=== PATIENT | female | born 1945 | race Hispanic/Latino ===

== ENCOUNTER 2022-08-19 21:26 | Emergency (ER) | payer OTHER ==
--- OUTSIDE RECORDS SUMMARY | 2022-08-19 21:29 | XMS REPORT | Continuity of Care Document ---
:1945 Author Organization [facility] t Address [address] [place] [address] Care Team Providers Name Role Phone Julian Castaneda MD Primary Care Physician Lab, Adc Fam Pob I Attending Clinician Unavailable Delvin Mariano PA-C Attending Clinician DELVIN MARIANO Attending Clinician Unavailable Doctor Unassigned, [place] Attending Clinician Unavailable Jhonny Friedman Attending Clinician Payers Payer Name Policy Type Policy Number Effective Date Expiration Date S ource Problems Condition Condition Condition Status Onset Resolution Last Treating Co mments Source Name Details Category Date Date Treatment Clinician Date Spinal Spinal Disease Active Methodi stenosis stenosis 3-20 st of lumbar of lumbar 00:00: Hosp edie region region 00 l without without neurogenic neurogenic claudicati claudicati on on Hypertensi Hypertensi Disease Active M ethodi ve ve 9-25 st emergency emergency 00:00: Hosp deie 00 l 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 21:49:37 l thy thy Josias (disorder) (disorder) Active Problem 02/25/2020 [facility] Dizziness Dizziness Problem Active 2020-02-25 Memoria (finding) (finding) 21:49:37 l Active [place] Problem 02/25/2020 [facility] Headache Headache Problem Active 2020-02-25 Memoria (finding) (finding) 21:49:37 l Active Josias Problem 02/25/2020 [facility] Hypertensi Problem Active 2020-02-25 M emoria ve Hypertensi 21:49:37 l disorder, ve [place] systemic disorder, arterial systemic (disorder) arterial (disorder) Active Problem 02/25/2020 [facility] Hypothyroi Hypothyro Problem Active 2020-02-25 Memoria dism idism 21:49:37 l (disorder) (disorder) He rmann Active Problem 02/25/2020 [facility] Allergies, Adverse Reactions, Alerts Allergy Allergy Status Severity Reaction(s) Onset Inactive Treating Comm ents Source Name Type Date Date Clinician Gerber Brizuela Active 'I was Method i phone ty to [address] adverse 00:00: it' Hospita reaction 00 l s to drug Gluten Propensi Active GI Methodi ty to Intolerance 05-27 st adverse 00:00: Hospita reaction 00 l s to drug Codeine Propensi Active Other (See "numbness Methodi ty to Comments) [address] adverse 00:00: and Hospita reaction 00 mouth"at l s to age 28 drug codeine codeine Active Sebastian Ferrara NO KNOWN Drug Active Univers ALLERGIE Class [facility] Family History Family Member Diagnosis Comments Start Date Stop Date Source Natural father Alcohol abuse Methodi [facility] Natural mother Hypertension [facility] Natural sister Cancer [facility] Social History Social Habit Start Date Stop Date Quantity Comments Source Exposure to Yes [facility] SARS-CoV-2 [facility]event[facility] Alcohol intake 2018-12-14 2018-12-14 [facility] 00:00:00 00:00:00 non-drinker of alcohol (finding) Tobacco use and 2018 2018 Smokeless tobacco [facility] exposure 00:00:00 00:00:00 non-user Sex Ass[birth year] [facility] 00:00:00 00:00:00 Smoking Status Start Date Stop Date Source Social History [facility] Never smoked tobacco [facility] ospital Medications Ordered Filled Start Stop Current Ordering Indication Dosage Frequency Signature Comments Components Source Medication Medication Date Date Medication? Clinician (SIG) Name Name 24 HR Yes 37.5 mg = Memoria venlafaxine 3-04 1 cap, PO, l 37.5 MG 21:35: Daily, # Terence n Extended 00 30 cap, 2 Release Refill(s), Capsule Pharmacy: [Effexor] [id number] Losartan Yes 25 mg, PO, Mem oria 1-21 Daily, 0 l 18:01: Refill(s) [place] Bisoprolol Yes 10 mg, PO, M emoria 1-21 Daily, 0 l 18:01: Refill(s) Josias 00 L. 2019 Yes 1{tbl} Take 1 Methodi acidophilus 3-[address] /dig enz 12:23: mouth Hospita cmb 5 14 daily. l (PROBIOTIC- DIGESTIVE ENZYMES ORAL) cranberry Yes 1{capsu Take 1 Met hodi 400 mg 3-21 le} capsule by st capsule 12:23: mouth. Hospita 14 l ranitidine Yes 150mg QD Take 150 Me thodi HCl (ZANTAC 3-[address] 75 ORAL) 12:23: mouth Hospita 14 every l morning. losartan Yes 25mg QD Take 25 mg Met hodi (COZAAR) 25 3-[address] MG tablet 12:23: nightly. Hosp edie 14 l bisoprolol Yes 10mg QD Take 10 mg M ethodi (ZEBETA) 10 3-[address] MG tablet 12:23: nightly. Hosp edie 14 l therapeutic Yes 1{tbl} QD Take 1 Me thodi multivitami 3-[address] n 12:23: mouth Hospita (THERAGRAN) 14 daily. l tablet polyethylen Yes Take by Met hodi e glycol 3-[address] 3350 12:23: Hospita (MIRALAX 14 l ORAL) Vital Signs Vital Name Observation Time Observation Value Comments Source Systolic (mm Hg) 2019-11-09 20:46:00 Frank rial Josias Diastolic (mm Hg) 2019-11-09 20:46:00 [facility] orial Josias Heart Rate 2019-11-09 20:46:00 [facility] Respitory Rate 2019-11-09 20:46:00 [facility] Height 2019-11-09 20:46:00 152.4 cm [facility] Weight 2019-11-09 20:46:00 [facility] BMI Calculated 2019-11-09 20:46:00 [facility] Height 2019-09-27 17:58:00 180.34 cm [facility] Weight 2019-09-27 17:58:00 [facility] BMI Calculated 2019-09-27 17:58:00 James Santillan Procedures Procedure Date / Time Performed Performing Clinician Toni duron Cervical laminectomy [facility] Laminectomy [facility] Plan of Care Planned Activity Planned Date Details Comments Source Future Scheduled 2022-07-11 HEPATITIS B VACCINES Met [facility] Test 16:40:57 (1 of 3 - 3-dose series) [code = HEPATITIS B VACCINES (1 of 3 - 3-dose series)] Future Scheduled 2022-07-11 COVID-19 VACCINE (#1) [facility] Test 16:40:57 [code = COVID-19 VACCINE (#1)] Future Scheduled 2022-07-11 BREAST CANCER [facility] Test 16:40:57 SCREENING [code = BREAST CANCER SCREENING] Future Scheduled 2022-07-11 COLONOSCOPY SCREENING [facility] Test 16:40:57 [code = COLONOSCOPY SCREENING] Future Scheduled 2022-07-11 SHINGLES VACCINES (1 Met [facility] Test 16:40:57 of 2) [code = SHINGLES VACCINES (1 of 2)] Future Scheduled 2022-07-11 65+ PNEUMOCOCCAL Methodi [facility] Test 16:40:57 VACCINE (1 - PCV) [code = 65+ PNEUMOCOCCAL VACCINE (1 - PCV)] Future Scheduled 2022-07-11 INFLUENZA VACCINE Method [facility] Test 16:40:57 [code = INFLUENZA VACCINE] Encounters Start End Encounter Admission Attending Care Care Encounter Source Date/Time Date/Time Type Type Clinicians Facility Department ID 2020-10-18 2020-10-18 Laboratory Lab, Adc Fam Pob I [facility] [id number] Univers 15:07:53 15:27:53 Only Delvin Mariano [facility] [id number] emily [facility] [id number] Shahid as Professio [phone] [place] [address] [address] 2020-10-18 2020-10-18 Outpatient R BUBBA MARIANO [facility] [id number] Univers 15:00:00 15:00:00 DELVIN diaz [facility] 2020-10-18 2020-10-18 Letter Doctor DELVIN [id number] 00:00:00 00:00:00 (Out) Unassigned, MARA [id number] ity of [place] [facility] [id number] Shahid as [phone] [address] 2020-02-23 2020-02-23 Ambulatory nullFlavo MNA [id number] Memoria 18:45:00 18:45:00 Pre-Reg r Neurology 02 l Violetta Ferrara 2020-02-23 2020-02-23 Outpatient Elder MHMISCHER MHMISCHER [id number] 13:45:00 13:45:00 Jhonny 02 Eleuterio 2019-12-21 2019-12-21 Outpatient MHIE MHIE [id number] Memoria 15:45:00 15:45:00 02 river Ferrara 2019-11-09 2019-11-10 Outpatient nullFlavo MNA [id number] Memoria 20:30:00 05:59:59 r Neurology 01 l Violetta Ferrara 2019-11-09 2019-11-09 Outpatient KLAUS FriemdanMISCHER MHMISCHER [id number] 14:30:00 23:59:59 Jhonny Eleuterio 2019-11-09 2019-11-09 Outpatient MHIE MHIE [id number] Memoria 14:30:00 14:30:00 01 river Ferrara 2019-10-07 2019-10-09 Outside nullFlavo MNA [id number] Memoria 20:55:28 05:59:59 Medical r Neurology 00 l Records Violetta Ferrara 2019-10-07 2019-10-08 Outpatient MHMISCHER MHMISCHER [id number] 14:55:28 23:59:59 00 2019-09-27 2019-09-28 Outpatient nullFlavo MNA [id number] Memoria 17:30:00 05:59:59 r Neurology 00 l Violetta Ferrara 2019-09-27 2019-09-27 Outpatient CODIE FriedmanSCHER MHMISCHER [id number] 11:30:00 23:59:59 Jhonny 00 Eleuterio 2019-09-27 2019-09-27 Outpatient MHIE MHIE [id number] Memoria 11:30:00 11:30:00 00 river Ferrara Results This patient has no known results.
[2022-08-19] MEDS ORDERED: MORPHINE 2 MG/ML SYR ONE (22:44)
[2022-08-19 23:00] LABS: Absolute Lymphocytes (CBC) 1.5 K/uL (0.7-4.9); Hematocrit 30.9 % (36.0-45.0); Lymphocytes % 17.8 % (15.3-44.8); MCV 94.5 fL (80-100); MPV 7.8 fL (7.6-11.3); RBC Red Blood Cell Count 3.27 M/uL (3.86-4.86)
[2022-08-19 23:15] LABS: Potassium 4.1 mmol/L (3.5-5.1)
[2022-08-20] MEDS ORDERED: ACETAMINOPHEN 325 MG TABLET ONE (00:14)
[2022-08-20 01:31] LABS: SARS-CoV-2 Antigen Rapid Res Negative (Negative)
--- NOTE | 2022-08-20 02:09 | ER ---
Nurse's Notes [facility] Name: Maribell New Age: 77 yrs Sex: Female : 1945 Arrival Date: 08/19/2022 Time: 21:29 Bed 5 Private MD: Diagnosis: Fracture of sixth cervical vertebra;Fall (on) (from) other stairs and steps, initial encounter Presentation: 08/19 22:12 Chief complaint: Patient states: "I fell down 3 steps. I don't think I loss vc1 consciousness.". Coronavirus screen: Vaccine status: Patient reports receiving the 2nd dose of the covid vaccine. Moderna At this time, the client does not indicate any symptoms associated with coronavirus-19. Ebola Screen: No symptoms or risks identified at this time. Risk Assessment: Do you want to hurt yourself or someone else? Patient reports no desire to harm self or others. Onset of symptoms was August 19, 2022 at 20:30. 22:12 Method Of Arrival: Ambulatory vc1 22:12 Acuity: TINY 2 vc1 22:12 Care prior to arrival: None. Mechanism of Injury: Fall down 3 steps. Trauma event jb4 details: Injury occurred in the [facility]. 22:12 Initial Sepsis Screen: Does the patient meet any 2 criteria? No. Patient's initial jb4 sepsis screen is negative. Does the patient have a suspected source of infection? No. Patient's initial sepsis screen is negative. Triage Assessment: 22:15 General: Appears in no apparent distress. uncomfortable, Behavior is calm, cooperative, vc1 appropriate for age. Pain: Complains of pain in right side of the head, right side of neck, right shoulder. Pain does not radiate. Pain currently is 9 out of 10 on a pain scale. EENT: No deficits noted. Neuro: Level of Consciousness is awake, alert, obeys commands, Oriented to person, place, time, situation, Appropriate for age. Cardiovascular: No deficits noted. Respiratory: Airway is patent Respiratory effort is even, unlabored, Respiratory pattern is regular, symmetrical. Trauma Activation: Alert Physician: ED Physician; Name: ramiro; Notified At: 22:17; Arrived At: 22:17 Physician: General Surgeon; Name: ; Notified At: 22:17; Arrived At: Physician: Radiology; Name: ; Notified At: 22:17; Arrived At: Physician: Respiratory; Name: ; Notified At: 22:17; Arrived At: Physician: Lab; Name: ; Notified At: 22:17; Arrived At: Historical: - Allergies: 22:14 codeine-guaifenesin; vc1 - PMHx: 22:14 Hypertensive disorder; vc1 22:14 Celiac's; Arthritis; Nerve and muscle damage; vc1 - PSHx: 22:14 Carpal tunnel; Neck sx; vc1 - Immunization history:: Adult Immunizations up to date, Client reports receiving the 2nd dose of the Covid vaccine. - Social history:: Smoking status: Patient denies any tobacco usage or history of. - Immunization history: Last tetanus immunization: unknown. Screenin:26 Abuse screen: Denies threats or abuse. Nutritional screening: No deficits noted. jb4 Tuberculosis screening: No symptoms or risk factors identified. Fall risk At risk due to prior history of falls. 22:[address] [facility] ED Fall Risk Assessment (Adult) History of falling in the last 3 months, jb4 including since admission Yes- single mechanical fall (1 pt) Confusion or Disorientation No (0 pts) Intoxicated or Sedated No (0 pts) Impaired Gait No (0 pts) Mobility Assist Device Used No (0 pt) Altered Elimination No (0 pt) Score/Fall Risk Level 0 - 2 = Low Risk Oriented to surroundings, Maintained a safe environment, Educated pt \\T\\ family on fall prevention, incl call for assistance when getting out of bed, Assessed \\T\\ reinforced patient's understanding of fall precautions, Provided non-skid footwear, Hourly rounding (assess needs \\T\\ fall precautionary measures) done. Fall Risk Fall in past 12 months (25 points). IV access (20 points). Total Grace Fall Scale indicates High Risk Score (45 or more points). Fall prevention measures have been instituted. Side Rails Up X 2 Placed Close to Nursing Station Frequent Obs/Assessments Occuring Family Present and informed to notify staff if the need to leave the bedside As available patient and family educated on Fall Prevention Program and Strategies. Primary Survey: 22:26 NO uncontrolled hemorrhage observed. A: The client is awake and alert. The airway is jb4 patent. Breathing/Chest: Spontaneous respiratory effort, equal unlabored respirations, breath sounds clear bilaterally, regular pattern, symmetrical chest rise and fall. Circulation: No external hemorrhage present. Regular and strong central pulse, skin warm/dry/normal color. Disability Pupils are equal, round, reactive to light and accommodation. Client is alert. Exposure/Environment: All clothing and personal items were removed. Forensic evidence collection is not deemed to be indicated at this time. Items placed in patient belonging bag. A warming method has been applied: A warm blanket has been provided to the patient. 23:30 Reassessment Alertness and Airway: Awake and alert. The airway is patent. Breathing: jb4 Spontaneous respiratory effort, equal unlabored respirations, breath sounds clear bilaterally, regular pattern with symmetrical chest rise and fall. Circulation: No external hemorrhage noted. Regular and strong central pulse, skin warm/dry/normal color. Disability: Pupils Pupils are equal, round, reactive to light and accomodation. Alert. Secondary Survey: 22:26 HEENT: No deficits noted. Gastrointestinal: No deficits noted. : No deficits noted. jb4 No signs and/or symptoms were reported regarding the genitourinary system. Musculoskeletal: Circulation, motion, and sensation intact. Range of motion: intact in all extremities. Assessment: 22:30 General: Appears in no apparent distress. comfortable, Behavior is calm, cooperative, jb4 appropriate for age. Pain: Complains of pain in right side of head, kneck, and right shoulder Pain does not radiate. Pain currently is 4 out of 10 on a pain scale. Neuro: Level of Consciousness is awake, alert, obeys commands, Oriented to person, place, time, situation. Cardiovascular: Patient's skin is warm and dry. Respiratory: Airway is patent Respiratory effort is even, unlabored, Respiratory pattern is regular, symmetrical. GI: No signs and/or symptoms were reported involving the gastrointestinal system. : No signs and/or symptoms were reported regarding the genitourinary system. EENT: No signs and/or symptoms were reported regarding the EENT system. Derm: Skin is intact, Skin is pink, warm \\T\\ dry. Musculoskeletal: Circulation, motion, and sensation intact. Range of motion: intact in all extremities. 23:22 Reassessment: Patient appears in no apparent distress at this time. Patient and/or jb4 family updated on plan of care and expected duration. Pain level reassessed. Patient is alert, oriented x 3, equal unlabored respirations, skin warm/dry/pink. 08/20 00:17 Reassessment: Patient appears in no apparent distress at this time. Patient and/or jb4 family updated on plan of care and expected duration. Pain level reassessed. Patient is alert, oriented x 3, equal unlabored respirations, skin warm/dry/pink. Neuro: Denies weakness dizziness, numbness. 01:00 Reassessment: Patient appears in no apparent distress at this time. Patient and/or jb4 family updated on plan of care and expected duration. Pain level reassessed. Patient is alert, oriented x 3, equal unlabored respirations, skin warm/dry/pink. 02:00 Reassessment: Patient appears in no apparent distress at this time. Patient and/or jb4 family updated on plan of care and expected duration. Pain level reassessed. Patient is alert, oriented x 3, equal unlabored respirations, skin warm/dry/pink. 02:00 Neuro: Level of Consciousness is awake, alert, obeys commands, Oriented to person, jb4 place, time, situation, Supervisor Inspecting are equal bilaterally Moves all extremities. Full function Gait is steady, Speech is normal, Denies weakness dizziness, numbness. Vital Signs: 08/19 22:12 Weight 52.16 kg; Height 5 ft. 0 in. (152.40 cm); Pain 9/10; vc1 22:27 BP 194 / 93; Pulse 66; Resp 17; Temp 97.3(TE); Pulse Ox 100% on R/A; ll3 08/20 00:00 BP 191 / 98; Pulse 71; Resp 16; Pulse Ox 100% on R/A; jb4 01:00 BP 158 / 112; Pulse 59; Resp 16; Pulse Ox 100% on R/A; jb4 02:00 BP 175 / 69; Pulse 79; Resp 16; Pulse Ox 100% on R/A; jb4 02:30 BP 155 / 55; Pulse 64; Resp 16; Pulse Ox 100% ; vc1 08/19 22:12 Body Mass Index 22.46 (52.16 kg, 152.40 cm) vc1 Sterling Coma Score: 08/19 22:26 Eye Response: spontaneous(4). Verbal Response: oriented(5). Motor Response: obeys jb4 commands(6). Total: 15. 23:22 Eye Response: spontaneous(4). Verbal Response: oriented(5). Motor Response: obeys jb4 commands(6). Total: 15. 08/20 00:00 Eye Response: spontaneous(4). Verbal Response: oriented(5). Motor Response: obeys jb4 commands(6). Total: 15. 01:00 Eye Response: spontaneous(4). Verbal Response: oriented(5). Motor Response: obeys jb4 commands(6). Total: 15. 02:00 Eye Response: spontaneous(4). Verbal Response: oriented(5). Motor Response: obeys jb4 commands(6). Total: 15. Trauma Score (Adult): 08/19 22:26 Eye Response: spontaneous(1); Verbal Response: oriented(1); Motor Response: obeys jb4 commands(2); Systolic BP: > 89 mm Hg(4); Respiratory Rate: 10 to 29 per min(4); Miguel Score: 15; Trauma Score: 12 23:22 Eye Response: spontaneous(1); Verbal Response: oriented(1); Motor Response: obeys jb4 commands(2); Systolic BP: > 89 mm Hg(4); Respiratory Rate: 10 to 29 per min(4); Miguel Score: 15; Trauma Score: 12 1214 00:00 Eye Response: spontaneous(1); Verbal Response: oriented(1); Motor Response: obeys jb4 commands(2); Systolic BP: > 89 mm Hg(4); Respiratory Rate: 10 to 29 per min(4); Miguel Score: 15; Trauma Score: 12 01:00 Eye Response: spontaneous(1); Verbal Response: oriented(1); Motor Response: obeys jb4 commands(2); Systolic BP: > 89 mm Hg(4); Respiratory Rate: 10 to 29 per min(4); Sterling Score: 15; Trauma Score: 12 02:00 Eye Response: spontaneous(1); Verbal Response: oriented(1); Motor Response: obeys jb4 commands(2); Systolic BP: > 89 mm Hg(4); Respiratory Rate: 10 to 29 per min(4); Sterling Score: 15; Trauma Score: 12 ED Course: 08/19 21:29 Patient arrived in ED. bp1 21:37 Adonay Lenz PA is PHCP. cp 21:37 Vince Garcia MD is Attending Physician. cp 22:13 Triage completed. vc1 22:17 Arm band placed on right wrist. vc1 22:26 Patient has correct armband on for positive identification. Placed in gown. Bed in low jb4 position. Call light in reach. Side rails up X 1. Patient maintains SpO2 saturation greater than 95% on room air. Client placed on continuous cardiac and pulse oximetry monitoring. NIBP monitoring applied. 22:26 Patient maintains SpO2 saturation greater than 95% on room air. Thermoregulation: warm jb4 blanket given to patient. 22:27 C-collar applied. ll3 22:50 Initial lab(s) drawn, by me, sent to lab. Inserted saline lock: 22 gauge in right ll3 antecubital area, using aseptic technique. Blood collected. 23:05 CT Traumagram (Head C Spine CAP W Con) In Process Unspecified. EDMS 23:20 Suhail Jernigan, RN is Primary Nurse. jb4 08/20 03:28 No provider procedures requiring assistance completed. Patient transferred, IV remains jb4 in place. Administered Medications: 08/19 22:50 Not Given (Patient Refused): morphine 2 mg IVP once over 4 mins ll3 08/20 00:18 Drug: Tylenol 650 mg Route: PO; jb4 02:07 CANCELLED (Physician Discretion): cloNIDine 0.1 mg PO once cp 02:36 Drug: Ativan (LORazepam) 0.5 mg Route: IVP; Site: right antecubital; jb4 Medication: 03:30 VIS not applicable for this client. vc1 Outcome: 02:09 ER care complete, transfer ordered by . cp 03:28 Transferred by ground EMS to [facility], Transfer form completed. X-rays sent jb4 w/ patient. 03:28 Condition: stable 03:28 Discharge instructions given to patient, Instructed on the need for transfer, Demonstrated understanding of instructions. 03:29 Patient's length of stay in the Emergency Department was greater than 2 hours. Pending jb4 transferPatient's length of stay extended due to 03:32 Patient left the ED. jb4 Signatures: Dispatcher [employer] EDMS Page, Adonay, PA PA cp Lapwai, Suhail, RN RN jb4 Ana Maria Chiu Lynsea, RN RN ll3 Anum Ontiveros RN RN vc1
--- NOTE | 2022-08-20 02:10 | EDPHYS ---
Physician Documentation [facility] Name: Maribell New Age: 77 yrs Sex: Female : 1945 Arrival Date: 08/19/2022 Time: 21:29 Bed 5 Private MD: ED Physician Vince Garcia HPI: 08/19 22:25 This 77 yrs old Female presents to ER via Ambulatory with complaints of Fall cp Injury. 22:25 Details of fall: The patient fell from a height, down approximately 3 stairs, and cp struck a concrete surface. Onset: The symptoms/episode began/occurred just prior to arrival. Associated injuries: The patient sustained neck injury, pain. Patient reports losing her balance while descending stairs and fall 3 stairs to ground level. Does not believe she lost consciousness from fall. Historical: - Allergies: 22:14 codeine-guaifenesin; vc1 - PMHx: 22:14 Hypertensive disorder; vc1 22:14 Celiac's; Arthritis; Nerve and muscle damage; vc1 - PSHx: 22:14 Carpal tunnel; Neck sx; vc1 - Immunization history:: Adult Immunizations up to date, Client reports receiving the 2nd dose of the Covid vaccine. - Social history:: Smoking status: Patient denies any tobacco usage or history of. - Immunization history: Last tetanus immunization: unknown. ROS: 22:30 Constitutional: Negative for body aches, chills, poor PO intake. cp 22:30 Eyes: Negative for injury, pain, redness, and discharge. cp 22:30 Neck: Positive for pain with movement, pain at rest. 22:30 Cardiovascular: Negative for chest pain, edema, palpitations. 22:30 Respiratory: Negative for cough, shortness of breath, wheezing. 22:30 Abdomen/GI: Negative for abdominal pain, nausea, vomiting, and diarrhea. 22:30 Back: Negative for pain at rest, pain with movement. 22:30 MS/extremity: Negative for deformity, paresthesias. 22:30 Neuro: Negative for altered mental status, numbness, syncope, weakness. 22:30 All other systems are negative. Exam: 22:35 Constitutional: The patient appears in no acute distress, alert, awake, cp non-diaphoretic, non-toxic, well developed, well nourished. 22:35 Head/Face: Normocephalic, atraumatic. cp 22:35 Eyes: Periorbital structures: appear normal, Conjunctiva: normal, no exudate, no injection, Sclera: no appreciated abnormality, Lids and lashes: appear normal, bilaterally. 22:35 ENT: External ear(s): are unremarkable, Ear canal(s): are normal, clear, TM's: dullness, bilaterally, Nose: is normal, Mouth: Lips: moist, Oral mucosa: pink and intact, moist, Posterior pharynx: Airway: no evidence of obstruction, patent, swelling, is not appreciated, erythema, is not appreciated. 22:35 Neck: C-spine: C-collar placed in ED, vertebral tenderness, that is mild, appreciated at C6 and C7. 22:35 Chest/axilla: Inspection: normal, Palpation: is normal, no crepitus, no tenderness. 22:35 Cardiovascular: Rate: normal, Rhythm: regular, Pulses: Pulses are 2+ in right radial artery and left radial artery. 22:35 Respiratory: the patient does not display signs of respiratory distress, Respirations: normal, no use of accessory muscles, no retractions, labored breathing, is not present, Breath sounds: are clear throughout, no decreased breath sounds, no stridor, no wheezing. 22:35 Abdomen/GI: Inspection: abdomen appears normal, Bowel sounds: active, all quadrants, Palpation: abdomen is soft and non-tender, in all quadrants. 22:35 Back: pain, that is mild, of the thoracic area. 22:35 Musculoskeletal/extremity: Exam is negative for decreased range of motion, deformity, injury. 22:35 Neuro: Orientation: to person, place \T\ time. Mentation: is normal, Motor: moves all fours, strength is normal, Sensation: no obvious gross deficits. Vital Signs: 22:12 Weight 52.16 kg; Height 5 ft. 0 in. (152.40 cm); Pain 9/10; vc1 22:27 BP 194 / 93; Pulse 66; Resp 17; Temp 97.3(TE); Pulse Ox 100% on R/A; ll3 1214 00:00 BP 191 / 98; Pulse 71; Resp 16; Pulse Ox 100% on R/A; jb4 01:00 BP 158 / 112; Pulse 59; Resp 16; Pulse Ox 100% on R/A; jb4 02:00 BP 175 / 69; Pulse 79; Resp 16; Pulse Ox 100% on R/A; jb4 02:30 BP 155 / 55; Pulse 64; Resp 16; Pulse Ox 100% ; vc1 08/19 22:12 Body Mass Index 22.46 (52.16 kg, 152.40 cm) vc1 Miguel Coma Score: 08/19 22:26 Eye Response: spontaneous(4). Verbal Response: oriented(5). Motor Response: obeys jb4 commands(6). Total: 15. 23:22 Eye Response: spontaneous(4). Verbal Response: oriented(5). Motor Response: obeys jb4 commands(6). Total: 15. 14 00:00 Eye Response: spontaneous(4). Verbal Response: oriented(5). Motor Response: obeys jb4 commands(6). Total: 15. 01:00 Eye Response: spontaneous(4). Verbal Response: oriented(5). Motor Response: obeys jb4 commands(6). Total: 15. 02:00 Eye Response: spontaneous(4). Verbal Response: oriented(5). Motor Response: obeys jb4 commands(6). Total: 15. Trauma Score (Adult): 08/19 22:26 Eye Response: spontaneous(1); Verbal Response: oriented(1); Motor Response: obeys jb4 commands(2); Systolic BP: > 89 mm Hg(4); Respiratory Rate: 10 to 29 per min(4); Miguel Score: 15; Trauma Score: 12 23:22 Eye Response: spontaneous(1); Verbal Response: oriented(1); Motor Response: obeys jb4 commands(2); Systolic BP: > 89 mm Hg(4); Respiratory Rate: 10 to 29 per min(4); Dale Score: 15; Trauma Score: 12 08/20 00:00 Eye Response: spontaneous(1); Verbal Response: oriented(1); Motor Response: obeys jb4 commands(2); Systolic BP: > 89 mm Hg(4); Respiratory Rate: 10 to 29 per min(4); Dale Score: 15; Trauma Score: 12 01:00 Eye Response: spontaneous(1); Verbal Response: oriented(1); Motor Response: obeys jb4 commands(2); Systolic BP: > 89 mm Hg(4); Respiratory Rate: 10 to 29 per min(4); Miguel Score: 15; Trauma Score: 12 02:00 Eye Response: spontaneous(1); Verbal Response: oriented(1); Motor Response: obeys jb4 commands(2); Systolic BP: > 89 mm Hg(4); Respiratory Rate: 10 to 29 per min(4); Dale Score: 15; Trauma Score: 12 MDM: 08/19 22:19 Patient medically screened. 08/20 01:10 Data reviewed: vital signs, nurses notes, lab test result(s), radiologic studies, CT scan, I have discussed the patient's presentation/case with the attending Emergency Department Physician; and as a result, I will transfer patient for trauma related C6 fracture. 01:10 Counseling: I had a detailed discussion with the patient and/or guardian regarding: the historical points, exam findings, and any diagnostic results supporting the discharge/admit diagnosis, radiology results, the need to transfer to another facility, for higher level of care. 02:10 Physician consultation: was contacted at 02:05, regarding regarding transfer, to [facility]. accepting physician will be DR Giordano. 08/19 22:32 Order name: Basic Metabolic Panel; Complete Time: 01:04 08/20 01:04 Interpretation: Normal except: NA 133; GLUC 107; BUN 25; CRE 1.06; GFR 55. 08/19 22:32 Order name: CBC with Diff; Complete Time: 01:04 08/19 22:32 Order name: Type And Screen; Complete Time: 01:04 08/19 22:32 Order name: CT Traumagram (Head C Spine CAP W Con) 08/20 00:13 Order name: SARS RAPID ds4 08/20 01:23 Order name: CREATININE WHOLE BLOOD EDMS 08/19 22:32 Order name: Labs collected and sent; Complete Time: 22:50 Administered Medications: 08/19 22:50 Not Given (Patient Refused): morphine 2 mg IVP once over 4 mins ll3 08/20 00:18 Drug: Tylenol 650 mg Route: PO; jb4 02:07 CANCELLED (Physician Discretion): cloNIDine 0.1 mg PO once 02:36 Drug: Ativan (LORazepam) 0.5 mg Route: IVP; Site: right antecubital; jb4 Disposition Summary: 08/20/22 02:09 Transfer Ordered Transfer Location: [facility] cp Reason: Higher level of care cp Condition: Stable cp Problem: new cp Symptoms: have improved cp Accepting Physician: DR Giordano(08/20/22 03:32) jb4 Diagnosis - Fracture of sixth cervical vertebra cp - Fall (on) (from) other stairs and steps, initial encounter cp Forms: - Medication Reconciliation Form cp - SBAR form cp Addendum: 08/23/2022 07:21 Co-signature as Attending Physician, Vince Garcia MD. r n Signatures: Dispatcher [employer] EDMS Vince Garcia MD MD rn Page, Corey, PA PA cp Bryson, James RN RN jb4 Anum Ontiveros RN RN vc1 Becka England RN ll3 Corrections: (The following items were deleted from the chart) 08/20 02:07 01:56 cloNIDine 0.1 mg PO once ordered. cp cp 02:09 02:09 DR Giordano cp cp 03:32 02:09 DR Giordano cp jb4
[2022-08-20] MEDS ORDERED: LORazepam 2 MG/ML VIAL ONE (02:34)
[2022-08-20 03:46] VITALS: TEMP 97.3; O2SAT 100
[2022-08-20 04:00] VITALS: BP 155/55
--- NOTE | 2022-08-20 10:59 | RAD REPORT ---
EXAM DESCRIPTION: CT Head and Cervical Spine Without Intravenous Contrast CLINICAL HISTORY: Fall down stairs TECHNIQUE: Axial computed tomography images of the head/brain and cervical spine without intravenous contrast. Sagittal and coronal reformatted images were created and reviewed. This CT exam was pe rformed using one or more of the following dose reduction techniques: automated exposure control, a djustment of the mA and/or kV according to patient size, and/or use of iterative reconstruction techn ique. COMPARISON: No relevant prior studies available. FINDINGS: Brain: Minimal bilateral periventricular and subcortical white matter low-attenuation wh ich is nonspecific and can be seen in the setting of chronic microvascular angiopathy. Numerous dur al calcifications. No hemorrhage. Ventricles: Unremarkable. No ventriculomegaly. Skull: No acute fracture. Sinuses: Unremarkable as visualized. No acute sinusitis. Mastoid air cells: Unremarkable as visualized. No mastoid effusion. Vertebrae: There is a vertically oriented linear lucency at the anterior inferior aspect of C6 in t he region of the disc osteophyte complex. Discs/spinal canal/neural foramina: Moderate to severe multilevel degenerative changes. Prior pos terior decompression extending from C3 through C6. No spinal canal stenosis. Soft tissues: Unremarkable. Vasculature: There is atherosclerotic disease of the internal carotid arteries bilaterally. * A single impression for all exams can be found at the end of this report EXAM DESCRIPTION: CT Chest, Abdomen and Pelvis With Intravenous Contrast CLINICAL HISTORY: Fall down stairs TECHNIQUE: Axial computed tomography images of the chest, abdomen and pelvis with intravenous contra st. Sagittal and coronal reformatted images were created and reviewed. This CT exam was performed using one or more of the following dose reduction techniques: automated exposure control, adjustme nt of the mA and/or kV according to patient size, and/or use of iterative reconstruction technique. COMPARISON: No relevant prior studies available. FINDINGS: CHEST: Lungs: Minimal bibasilar subsegmental atelectasis/pleural parenchymal scar. Pleural space: Calcified pleural plaques on the left. No significant effusion. No pneumothorax. Heart: The heart is mildly enlarged. Coronary artery calcification. No significant pericardial effusion. ABDOMEN: Liver: Unremarkable. No mass. Gallbladder and bile ducts: The gallbladder is contracted. No calcified stones. No ductal dilat ion. Pancreas: Unremarkable. No ductal dilation. No mass. Spleen: Unremarkable. No splenomegaly. Adrenals: Unremarkable. No mass. Kidneys and ureters: Unremarkable. No hydronephrosis. No solid mass. Stomach and bowel: Moderate stool. No obstruction. No appreciable mucosal thickening. PELVIS: Appendix: Normal caliber appendix. No findings to suggest acute appendicitis. Bladder: Unremarkable. No mass. Reproductive: Unremarkable as visualized. CHEST, ABDOMEN and PELVIS: Intraperitoneal space: Unremarkable. No significant fluid collection. No free air. Bones/joints: Multilevel spondylosis. No acute fracture. Prior posterior decompression at L4-L5 . No dislocation. Soft tissues: Unremarkable. Vasculature: Mild to moderate atherosclerotic disease. No aortic aneurysm. Lymph nodes: Unremarkable. No enlarged lymph nodes. * A single impression for all exams can be found at the end of this report IMPRESSION: CT Head and Cervical Spine Without Intravenous Contrast: 1. No acute intracranial or extra-axial abnormality. 2. Questionable age indeterminate fracture at the anterior inferior aspect of C6. 3. Other findings as above. CT Chest, Abdomen and Pelvis With Intravenous Contrast: 1. No acute intrathoracic injury. 2. No evidence for hollow or solid organ injury. 3. Other findings as above. THIS REPORT CONTAINS FINDINGS THAT MAY BE CRITICAL TO PATIENT CARE: The findings were verbally discu ssed via telephone conference with MOLLY Ashley, on 08/19/2022 11:53 PM [employer]ACH[employer]ED[employer]. The results were ackno wledged and understood. Electronically signed by: Gabe Freeman MD 08/19/2022 11:53 PM [employer]AT[employer]ING MACHINE FEEDER Due to temporary technical issues with the PACS/Fluency reporting system, reports are being signed by the in house radiologists without review as a courtesy to insure prompt reporting. The interpreting radiologist is fully responsible for the content of the report.
== END 2022-08-20 03:32 | disposition short-term general hospital (02) ==
LOC: ER 21:26
DX: S12.500A Unspecified displaced fracture of sixth cervical vertebra, initial encounter for closed fracture (principal); W10.8XXA Fall (on) (from) other stairs and steps, initial encounter; Z20.822 Contact with and (suspected) exposure to COVID-19; I10 Essential (primary) hypertension; Z88.5 Allergy status to narcotic agent
CPT/HCPCS: 85025; 80048; 36415; 86900; 86850; 82565; 86901; 70450; 72125; 71260; 74177; 96374; 99285; 87811; Q9967; J2270

== ENCOUNTER 2024-12-31 17:37 | Emergency (ER) | payer OTHER ==
--- NOTE | 2024-12-31 19:36 | RAD REPORT ---
EXAMINATION: Femur Right VIEWS: As above CLINICAL INDICATION: Female, 79 years old. PAIN RIGHT COMPARISON: No prior exam. IMPRESSION: No acute fracture. No dislocation. Mild to moderate right acetabular degenerative changes.
--- NOTE | 2024-12-31 19:38 | RAD REPORT ---
EXAM: Knee Left 3 View INDICATION: PAIN COMPARISON: None FINDINGS: No acute fracture. No significant knee effusion. Chondrocalcinosis in the medial and lateral lateral compartments. Mild medial lateral compartment maura rowing. Mild patellofemoral compartment spurring. Other: N/A IMPRESSION: No acute osseous abnormality involving the imaged knee.
--- NOTE | 2024-12-31 19:38 | RAD REPORT ---
EXAMINATION: Knee Right 3 View VIEWS: As above CLINICAL INDICATION: Female, 79 years old. PAIN COMPARISON: none IMPRESSION: Nondisplaced fracture at the middle third of the patella. Lipohemarthrosis present. No other fractures seen. Contour calcinosis the medial lateral compartment. Peripheral vascular calci fications..
--- NOTE | 2024-12-31 19:42 | ER ---
Nurse's Notes [facility] Name: Maribell New Age: 79 yrs Sex: Female : 1945 Arrival Date: 12/31/2024 Time: 17:37 Bed 15 Private MD: Diagnosis: Fracture of patella Presentation: 12/31 17:56 Chief complaint: EMS states: Pt tripped over some loose shingles on the ground, landed ph on both knees, c/o bilateral knee pain, worse on the R, did not hit head, no LOC, does not take blood thinners. Coronavirus screen: Vaccine status: Patient reports being unvaccinated. Ebola Screen: No symptoms or risks identified at this time. Initial Sepsis Screen: Does the patient meet any 2 criteria? No. Patient's initial sepsis screen is negative. Does the patient have a suspected source of infection? No. Patient's initial sepsis screen is negative. Risk Assessment: Do you want to hurt yourself or someone else? Patient reports no desire to harm self or others. Onset of symptoms was December 31, 2024. 17:56 Method Of Arrival: EMS: [facility] 17:56 Acuity: TINY 4 ph Triage Assessment: 17:58 General: Appears in no apparent distress. comfortable, well groomed, Behavior is calm, ph cooperative, appropriate for age. Pain: Complains of pain in bilateral knees, worse on R. Neuro: Level of Consciousness is awake, alert, obeys commands, Oriented to person, place, time, situation. Cardiovascular: Capillary refill < 3 seconds in bilateral fingers Patient's skin is warm and dry. Respiratory: Airway is patent Respiratory effort is even, unlabored. Derm: Skin is pink, warm \T\ dry. Musculoskeletal: Circulation, motion, and sensation intact. Range of motion: intact in all extremities, Swelling present in right knee. Historical: - Allergies: 17:58 codeine-guaifenesin; ph - PMHx: 17:58 Arthritis; Celiac's; Hypertensive disorder; Nerve and muscle damage; ph - PSHx: 17:58 carpal tunnel; Neck sx; ph - Immunization history:: Adult Immunizations unknown. - Infectious Disease History:: Denies. - Social history:: Smoking status: Patient denies any tobacco usage or history of. - Family history:: not pertinent. - Hospitalizations: : No recent hospitalization is reported. Screenin:00 [facility] ED Fall Risk Assessment (Adult) History of falling in the last 3 months, ph including since admission Yes- single mechanical fall (1 pt) Confusion or Disorientation No (0 pts) Intoxicated or Sedated No (0 pts) Impaired Gait No (0 pts) Mobility Assist Device Used No (0 pt) Altered Elimination No (0 pt) Score/Fall Risk Level 0 - 2 = Low Risk Oriented to surroundings, Maintained a safe environment, Hourly rounding (assess needs \T\ fall precautionary measures) done. Abuse screen: Denies threats or abuse. Denies injuries from another. Nutritional screening: No deficits noted. Tuberculosis screening: No symptoms or risk factors identified. Assessment: 18:01 General: SEE TRIAGE ASSESSMENT. ph Vital Signs: 17:56 BP 154 / 73; Pulse 81; Resp 18; Temp 97.9; Pulse Ox 98% on R/A; Weight 51.71 kg; Height ph 5 ft. 0 in. ; 20:15 BP 139 / 60; Pulse 86; Resp 18; Pulse Ox 97% ; cp4 17:56 Body Mass Index 22.26 (51.71 kg, 152.4 cm) ph ED Course: 17:47 Patient arrived in ED. eb 17:56 Lucy Saldaña, RN is Primary Nurse. ph 17:58 Vince Garcia MD is Attending Physician. rn 17:58 Triage completed. ph 18:00 Arm band placed on Patient placed in an exam room, on a stretcher, on pulse oximetry. ph 18:00 Patient has correct armband on for positive identification. Bed in low position. Call ph light in reach. Side rails up X 1. Pulse ox on. NIBP on. Door closed. Noise minimized. Warm blanket given. 19:31 XRAY Knee LEFT 3 view In Process Unspecified. EDMS 19:31 XRAY Knee RIGHT 3 view In Process Unspecified. EDMS 19:31 XRAY Femur RIGHT In Process Unspecified. EDMS 19:41 Rod Alberts MD is Referral Physician. rn 20:16 Provided Education on: patella fracture. cp4 20:16 No provider procedures requiring assistance completed. Knee immobilizer applied on cp4 right knee. 20:16 Patient did not have IV access during this emergency room visit. cp4 Administered Medications: No medications were administered Medication: 18:00 VIS not applicable for this client. ph Outcome: 19:41 Discharge ordered by . rn 20:16 Discharged to home via wheelchair, with crutches, cp4 20:16 Condition: stable 20:16 Discharge instructions given to patient, family, Instructed on discharge instructions, follow up and referral plans. medication usage, crutch walking, Demonstrated understanding of instructions, follow-up care, crutch walking, 20:17 Patient left the ED. cp4 Signatures: Dispatcher [employer] EDMS Vince Garcia MD MD rn Hall, Patricia, RN RN Yesesnia Parks Christina cp4
--- NOTE | 2024-12-31 19:42 | EDPHYS ---
Physician Documentation [facility] Name: Maribell New Age: 79 yrs Sex: Female : 1945 Arrival Date: 12/31/2024 Time: 17:37 Bed 15 Private MD: ED Physician Vince Garcia HPI: 12/31 18:45 This 79 yrs old Female presents to ER via EMS with complaints of knee pain. rn 18:45 The patient presents with decreased range of motion, an injury, pain. The complaints rn affect the left knee, right knee. Onset: The symptoms/episode began/occurred just prior to arrival. Modifying factors: The symptoms are alleviated by nothing. the symptoms are aggravated by movement, weight bearing, bending knee. Severity of symptoms: At their worst the symptoms were moderate, in the emergency department the symptoms have improved. The patient has not recently seen a physician. Patient reports tripped and fell directly on both knees. Patient reports pain mainly to right knee that radiates up to right thigh. No other injury. Was having difficulty getting up after falling. Does not take blood thinners. Did not cut or scrape knee. Denies hip pain. No ankle pain. Historical: - Allergies: 17:58 codeine-guaifenesin; ph - PMHx: 17:58 Arthritis; Celiac's; Hypertensive disorder; Nerve and muscle damage; ph - PSHx: 17:58 carpal tunnel; Neck sx; ph - Immunization history:: Adult Immunizations unknown. - Infectious Disease History:: Denies. - Social history:: Smoking status: Patient denies any tobacco usage or history of. - Family history:: not pertinent. - Hospitalizations: : No recent hospitalization is reported. ROS: 18:45 Constitutional: Negative for fever, chills, and weight loss, Neck: Negative for injury, rn pain, and swelling, Cardiovascular: Negative for chest pain, palpitations, and edema, Respiratory: Negative for shortness of breath, cough, wheezing, and pleuritic chest pain, Abdomen/GI: Negative for abdominal pain, nausea, vomiting, diarrhea, and constipation, Back: Negative for injury and pain, MS/Extremity: Positive for bilateral knee injury and pain Skin: Negative for injury, rash, and discoloration, Neuro: Negative for headache, weakness, numbness, tingling, and seizure, Exam: 18:45 Constitutional: This is a well developed, well nourished patient who is awake, alert, rn and in no acute distress. Cardiovascular: Regular rate and rhythm. No pulse deficits. MS/ Extremity: Pulses equal, no cyanosis. Neurovascular intact. Painful range of motion right knee with small effusion palpated. No abrasion or laceration. Full range of motion bilateral hips. No tenderness or deformity below either knee. Neuro: Awake and alert, GCS 15 Vital Signs: 17:56 BP 154 / 73; Pulse 81; Resp 18; Temp 97.9; Pulse Ox 98% on R/A; Weight 51.71 kg; Height ph 5 ft. 0 in. ; 20:15 BP 139 / 60; Pulse 86; Resp 18; Pulse Ox 97% ; cp4 17:56 Body Mass Index 22.26 (51.71 kg, 152.4 cm) ph MDM: 17:58 Medical Screening Exam initiated rn 19:36 Differential diagnosis: closed fracture, contusion. Data reviewed: vital signs, nurses rn notes, radiologic studies, plain films, and as a result, I will discharge patient. Counseling: I had a detailed discussion with the patient and/or guardian regarding the historical points, exam findings, and any diagnostic results supporting the discharge/admit diagnosis, radiology results, the need for outpatient follow up, to return to the emergency department if symptoms worsen or persist or if there are any questions or concerns that arise at home. Response to treatment: the patient's symptoms have mildly improved after treatment, and as a result, I will discharge patient. 19:40 ED course: Nondisplaced fracture of the right patella identified on x-ray images of rn right knee by me. Patient has ability to flex and extend. Will place in knee immobilizer and discharged with Ortho follow-up.. 12/31 18:04 Order name: XRAY Knee LEFT 3 view; Complete Time: 19:41 rn 12/31 18:04 Order name: XRAY Knee RIGHT 3 view; Complete Time: 19:41 rn 12/31 18:04 Order name: XRAY Femur RIGHT; Complete Time: 19:41 rn 12/31 19:22 Order name: Knee Immobilizer; Complete Time: 20:15 rn 12/31 19:22 Order name: Crutches; Complete Time: 20:15 rn Administered Medications: No medications were administered Disposition Summary: 12/31/24 19:41 Discharge Ordered Notes: Location: Home rn Problem: new rn Symptoms: have improved rn Condition: Stable rn Diagnosis - Fracture of patella rn Followup: rn - With: Rod Alberts MD - When: As needed - Reason: Recheck today's complaints, Re-evaluation by your physician Discharge Instructions: - Discharge Summary Sheet rn - How to Use a Knee Immobilizer rn - Patellar Fracture, Adult rn Forms: - Medication Reconciliation Form rn - Antibiotic international freight forwarder - Prescription Opioid Use rn - Patient Portal Instructions rn - Leadership Thank You Letter rn Signatures: Dispatcher [employer] EDMS Vince Garcia MD MD rn Lucy Saldaña RN RN ph Corrections: (The following items were deleted from the chart) 18:05 18:05 Femur Right+[email or web address] ordered. [facility] EDNM
[2025-01-02 21:46] VITALS: TEMP 97.9
[2025-01-02 21:47] VITALS: BP 139/60; O2SAT 97
== END 2024-12-31 20:17 | disposition home or self-care (01) ==
LOC: ER 17:37
DX: S82.001A Unspecified fracture of right patella, initial encounter for closed fracture (principal); M25.562 Pain in left knee; W01.0XXA Fall on same level from slipping, tripping and stumbling without subsequent striking against object, initial encounter
CPT/HCPCS: 99284